=== PATIENT | female | born 1970 | race Caucasian/White ===

== ENCOUNTER → 2019-03-11 | Outpatient (CLI) | payer BC, OTHER ==
--- NOTE | 2019-03-11 15:15 | 2DMMODE ---
[facility] [place] [address] 2 D/M-MODE ECHOCARDIOGRAM Name: COLETTE BHATT Room #: REG CHENG Desir#: [id number] ������������� Admission: 03/11/19 ������������� Attend Phys: Dotty Goss Discharge: ��� ������������� ��� Date of : 74 Date of Service: 03/11/19 1515 �� Report #: [id number] �������� ��������������������������������������������[id number] THIS REPORT FOR: //name// APPROVED REPORT Study performed: 03/11/2019 13:02:57 EXAM: Comprehensive 2D, Doppler, and color-flow Echocardiogram Patient Location: Echo lab Status: routine BSA: 2.13 HR: 68 bpm BP: 123/82 mmHg Rhythm: NSR Other Information Study Quality: Good Indications Dizziness and Vertigo Dyspnea Palpitations Tachycardia 2D Dimensions RVDd: 28.14 mm IVSd: 10.20 (7-11mm) LVOT Diam: 24.48 (18-24mm) LVDd: 50.55 mm PWd: 9.03 (7-11mm) Ascending Ao: 37.76 (22-36mm) LVDs: 31.13 (25-40mm) Aortic Root: 36.55 mm IVC: 23.00 mm Volumes Left Atrial Volume (Systole) Single Plane 4CH: 32.26 mL Single Plane 2CH: 35.82 mL LA ESV Index: 17.53 mL/m2 Aortic Valve AoV Peak Osiel.: 1.38 m/s AO Peak Gr.: 7.58 mmHg LVOT Max P.73 mmHg LVOT Max V: 1.09 m/s CAMELIA Vmax: 3.72 cm2 Mitral Valve [facility] [address] [address] 2 D/M-MODE ECHOCARDIOGRAM Name: COLETTE BHATT Room #: REG [facility]#: [id number] ������������� Admission: 03/11/19 ������������� Attend Phys: Dotty Goss Discharge: ��� ������������� ��� Date of : 74 Date of Service: 03/11/19 1515 �� Report #: [id number] �������� ��������������������������������������������[id number] E/A Ratio: 1.3 MV Decel. Time: 217.09 ms MV E Max Osiel.: 0.95 m/s MV A Osiel.: 0.72 m/s MV PHT: 62.96 ms IVRT: 147.64 ms Pulmonary Valve PV Peak Osiel.: 0.97 m/s PV Peak Gr.: 3.74 mmHg Pulmonary Vein P Vein S: 0.60 m/s P Vein A: 0.34 m/s P Vein D: 0.46 m/s P Vein A Dur.: 170.7 msec P Vein S/D Ratio: 1.30 Tricuspid Valve TR Peak Osiel.: 1.85 m/s RAP Estimate: 10.00 mmHg TR Peak Gr.: 13.65 mmHg PA Pressure: 24.00 mmHg Left Ventricle The left ventricle is normal size. There is normal left ventricular wall thickness. The left ventricular systolic function is normal. The left ventricular ejection fraction is within the normal range. LVEF is 55-60%. Right Ventricle The right ventricle is normal size. The right ventricular systolic function is normal. Atria The left atrium size is normal. The right atrium size is normal. Aortic Valve The aortic valve is normal in structure, trileaflet. No aortic regurgitation is present. There is no aortic valvular stenosis. Mitral Valve The mitral valve is normal in structure. There is no mitral valve regurgitation noted. No evidence of mitral valve stenosis. Tricuspid Valve The tricuspid valve is normal in structure. Mild tricuspid regurgitation. Estimated PAP of 24 mmHg. [facility] [address] [place] [address] 2 D/M-MODE ECHOCARDIOGRAM Name: COLETTE BHATT Room #: SETH Desir#: [id number] ������������� Admission: 03/11/19 ������������� Attend Phys: Dotty Goss Discharge: ��� ������������� ��� Date of : 74 Date of Service: 03/11/19 1515 �� Report #: [id number] �������� ��������������������������������������������[id number] Pulmonic Valve Pulmonic valve is not well visualized. There is no pulmonic valvular regurgitation seen. Great Vessels Aortic root is within upper limits of normal measuring 3.7 cm. The ascending aorta is mildly dilated measuring 3.8 cm. IVC is dilated and collapses >50% with inspiration. Pericardium There is no pericardial effusion. <Conclusion> The left ventricle is normal size. LVEF is 55-60%. The aortic valve is normal in structure, trileaflet. The mitral valve is normal in structure. The tricuspid valve is normal in structure. Mild tricuspid regurgitation. Estimated PAP of 24 mmHg. Pulmonic valve is not well visualized. There is no pericardial effusion. ��������������������������������������������� <ELECTRONICALLY SIGNED> ���������������������������������������� By: Larry Batres MD ��������������������������������������������� 03/11/19 1515 1515 1515 Larry Batres MD /INF
== END ==
LOC: CV 07:10 → NUC 10:14 → CV 11:29 → NUC 12:24
DX: I07.1 Rheumatic tricuspid insufficiency (principal); I47.1 Supraventricular tachycardia; Z88.8 Allergy status to other drugs, medicaments and biological substances; Z88.0 Allergy status to penicillin

== ENCOUNTER 2019-03-25 10:11 | Observation (INO) | payer BC, OTHER ==
[~2019-03-25] VITALS: Ht 170.2 cm; Wt 104.3 kg
[2019-03-25] VITALS (7 sets, daily range): BP systolic 105–132; BP diastolic 72–84
[2019-03-25 10:42] LABS: ABSOLUTE NEUTROPHILS 2.9 thou/uL (1.4-8.2); BASOPHILS 0.1 % (0.0-2.0); HEMATOCRIT 40.8 % (37.0-47.0); LYMPHOCYTES 40.4 % (24.0-44.0); MCH 31.1 pg (26.0-34.0); MCHC 34.2 g/dL (28.0-37.0); MCV 90.7 fL (80.0-100.0); MONOCYTES 6.7 % (1.0-8.0); PLATELET COUNT 328 thou/uL (150-400); POLYS 52.8 % (36.0-66.0); RDW 12.3 % (10.5-14.5); WBC 5.5 thou/uL (4.0-11.0)
[2019-03-25 10:50] LABS: CALCIUM 9.2 mg/dL (8.5-10.1); CREATININE 0.9 mg/dL (0.6-1.0); POTASSIUM 3.9 mmol/L (3.5-5.1)
[2019-03-25 10:54] LABS: APTT 25.8 Seconds (24.5-32.8); PROTIME 9.6 Seconds (9.3-11.4)
[2019-03-25 10:55] LABS: ALBUMIN 4.2 g/dL (3.4-5.0); TOTAL BILIRUBIN 0.5 mg/dL (<0.1-1.0); TOTAL PROTEIN 7.6 g/dL (6.4-8.2)
[2019-03-25] MEDS ORDERED: PYRIDOXINE HCL50 MG PO ×2 (11:48)
[2019-03-25] MEDS ORDERED: ASPIRIN EC81 M1 PO (16:09)
--- NOTE | 2019-03-25 16:48 | NUR ---
PT CARE ASSUMED APPROX 1545. ADMITTED FROM PACU S/P ABLATION. VSS. ALERT AND ORIENTED X4. DENIES SOA. REPORTS PAIN IN HEAD, BACK AND LEGS. MESSAGE SENT TO PHARMACY TO SEND TORDOL. FAMILY AT BEDSIDE. BILATERAL GROIN SITES C/D/I. POST EP PROCEDURE INTERVENTION INITIATED. PT DENIES QUESTIONS OR CONCERNS REGARDING POC. PT HAD FOOD AND DRINK UPON ARRIVAL. ORIENTED TO UNIT AND HOSPITAL POLICIES, MENU AND VISITATION HRS. DENIES QUESTIONS. WILL MEDICATE WHEN TORDOL ARRIVES. NO DISTRESS NOTED.
[2019-03-26 04:45] VITALS: BP 117/80
--- NOTE | 2019-03-26 06:01 | NUR ---
ASSUMED PT CARE AT 1900, VSS. PT A&0X4, COMPLAINED OF PAIN IN BOTH LEFT AND RIGHT GROIN SITES. GROIN SITES HAS SOME DRIED BLOOD DRAINAGE UPON ASSUMPTION OF PATIENT CARE. APART FROM THAT, SITE IS SOFT TO TOUCH, NO HEMATOMA NOTED. KETORALAC IV AND TYLENOL GIVEN TO MANAGE PT'S PAIN, WELL LORAZEPAM FOR ANXIETY. PT HAS BEEN STABLE ALL NIGHT, SLEPT THROUGH THE NIGHT WELL. WILL CONTINUE TO MONITOR PER POC.
[2019-03-26 08:20] VITALS: BP 111/67
[2019-03-26 08:59] VITALS: BP 111/67
--- NOTE | 2019-03-26 13:31 | NUR ---
ASSUMED CARE OF THE PATIENT AT 0700. A&O X 4. BILATERAL GROIN SITES WERE EXAMINED WITH NURSE RESEARCHER AT SHIFT CHANGE. NO EDEMA OR HEMATOMA AT EITHER SITE. RIGHT SIDE HAD MINIMAL DRIED BLOOD ON THE BANDAGE WHICH WAS ON THERE THE ENTIRETY OF THE SHIFT, ACCORDING TO NURSE RESEARCHER. COMPLAINS OF TENDERNESS AT LEFT GROIN SITE, WHICH IS BEING TREATED WITH IV TORADOL AND ACETAMINOPHEN. DR. AVILA PREPARED DISCHARGE ORDERS. PATIENT REFUSED AM MED ALONG WITH IBPROFEN ADDED BY DR. AVILA. IV AD TELE REMOVED. PATIENT STATES THAT SHE FEELS BETTER THAN SHE DID ON ARRIVAL. SHE WAS DRIVE HOME BY HER MOTHER.
--- NOTE | 2019-03-29 16:45 | P ---
[facility] [place] [address] PROCEDURE REPORT Name: COLETTE BHATT Room #: 214-P [facility] Slime MRamone#: [id number] Admission: 03/25/19 ������������������ Attend Phys: West Villa MD Discharge: 03/26/19 ������������������ Date of : 74 Report #: [id number] THIS REPORT FOR: //name// CC: Anabel Villa PREOPERATIVE DIAGNOSIS: Supraventricular tachycardia. POSTOPERATIVE DIAGNOSIS: Right-sided focal atrial tachycardia arising from the clement terminalis. HISTORY: The patient is a 48-year-old with history of frequent palpitations. Some short runs of atrial tachycardia on a manager cardiac, who is here for EP study and possible ablation. PROCEDURES PERFORMED: 1. SVT ablation, CPT code 58289. 2. EP with left atrial pacing and recording, CPT code 85514. 3. Program stimulation and pacing after IV drug infusion, CPT code 14644. 4. 3D mapping EP, CPT code 89319. ANESTHESIA: The patient underwent MAC anesthesia with no anesthesia related complications. DESCRIPTION OF PROCEDURE: The patient underwent informed consent. We discussed the details of the procedure including the risks, which include but not limited to bleeding, vascular damage, cardiac perforation, stroke, KS as well as damage to the pauma conduction system requiring permanent pacemaker. She understood these risks and is willing to proceed. The patient was brought to the EP laboratory in a fasting and sedated state, prepped and draped in a sterile fashion and I placed 3 short sheaths in the right femoral vein and one short sheath in left femoral vein using the modified Seldinger technique. Next, under fluoroscopy, I placed 3 quadripolar catheters into the HRA, His, and RV positions and a decapolar catheter easily in the coronary sinus and I performed both left atrial pacing and recording from this catheter. The patient at baseline was in sinus rhythm with sinus cycle length of 600 milliseconds, WY interval 135 milliseconds, QRS duration 94 milliseconds, QT interval 360 milliseconds, AH interval 82 milliseconds, HV interval 47 milliseconds. Next, ventricular pacing was performed and VA block was noted at 370 milliseconds and VA ERP was noted at 240 milliseconds at 450-millisecond basic drive cycle length. Conduction was both midline and decremental. Next, atrial pacing was performed and AV block was noted at 280 milliseconds. Atrial ERP was noted at 200 milliseconds at 500-millisecond basic drive cycle length. With single atrial extrastimuli, there was some evidence of intraatrial reentry [facility] [address] [address] PROCEDURE REPORT Name: COLETTE BHATT Room #: 214-P [facility] Slime Desir#: [id number] Admission: 03/25/19 ������������������ Attend Phys: West Villa MD Discharge: 03/26/19 ������������������ Date of : 74 Report #: [id number] with some high-to-low activation patterns. This appeared to be nonspecific in nature. Next, isoproterenol was initiated at 2 mcg per minute and aggressive EP study was continued. AV block was now noted at 230 milliseconds. Atrial ERP was noted at 190 milliseconds at a 400-millisecond basic drive cycle length. Again, there was occasional intraatrial reentry, which again I did not think was anything of interest. Next, ventricular pacing and again was performed and VA block was noted at 300 milliseconds and we performed testing on isoproterenol for 30 minutes. Next, isoproterenol was turned off and after performing testing off of isoproterenol for about 10 minutes, the patient went into SVT. The tachycardia cycle length was 300 milliseconds. There was a high-to-low atrial activation suggestive of an atrial tachycardia. Rapid ventricular pacing was performed and I was able to dissociate the V from the A suggestive of an atrial tachycardia. 3D MAPPING AND ABLATION: I removed my HRA catheter and placed a PentaRay into the right atrium and initially created a voltage map and 3D mapping. Next, the patient was induced back into the atrial tachycardia with single atrial extrastimuli. Of note, I did leave the patient on 0.5 mcg of isoproterenol after I had induced the tachycardia. The activation map was suggestive of a focal atrial tachycardia arising from the high right atrium along the clement terminalis. It was basically straight lateral. When I would place the PentaRay in this site, there was frequent termination of the tachycardia. When I tried mapping this, the patient did degenerate once into atrial fibrillation and required a 200 joule cardioversion. A second time of mapping in the same site also resulted in atrial fibrillation requiring a second 200 joule cardioversion. At this point, we had a very nice voltage and activation map and the atrial tachycardia appeared to be very focal and at the site where it was arising, there were very fractionated atrial signals in sinus rhythm of around 40-50 milliseconds. We performed a finer mapping with a 4 mm SmartTouch ThermoCool ablation catheter at this site. When I had the ablation catheter at these highly fractionated atrial signals, I could no longer induce the tachycardia. She would have maybe 3-5 beats and then terminate. Therefore, I decided to go ahead and ablate at this site. I did perform high output pacing at 10 volts all along this region to ensure there is no evidence of phrenic nerve capture. I then performed ablation at 35 hanson. The first ablation lesion, which was performed at the earliest atrial activation site resulted in a burst of atrial tachycardia lasting about 10 seconds and then termination. I performed approximately 7 ablation lesions, all of 30-60 milliseconds all along this region guided by the fractionated atrial signals. There appeared to be good decreased in the atrial amplitude and homogenization of the atrial activity in this site. POST-ABLATION TESTING: Post-ablation, the patient was placed back on isoproterenol 1 mcg per minute and we performed aggressive EP study again. Atrial ERP was noted at 180 milliseconds at a 400-millisecond basic drive cycle length and AV block was noted at 250 milliseconds. Again, I tried to induce [facility] [address] [place] [address] PROCEDURE REPORT Name: COLETTE BHATT Room #: 214-P [facility]..#: [id number] Admission: 03/25/19 ������������������ Attend Phys: West Villa MD Discharge: 03/26/19 ������������������ Date of : 74 Report #: [id number] just performing single atrial extrastimuli at the similar cycle lengths and we could not induce anything at this point. Isoproterenol was turned off and again we continued testing for a total of 30 minutes post-ablation and this focal atrial tachycardia was now rendered noninducible. As such, the procedure was concluded. The patient was in sinus rhythm with sinus cycle length of 555 milliseconds, WY interval 165 milliseconds, QRS duration 90 milliseconds, QT interval 320 milliseconds, AH interval 80 milliseconds, HV interval 40 milliseconds. As such, all catheters and sheaths were pulled. Hemostasis was obtained. The patient awoke neurologically and hemodynamically intact. No complications and no significant bleeding. CONCLUSIONS: 1. Successful atrial tachycardia ablation that was arising from the lateral high right atrium along the clement terminalis. 2. Normal SA gus function. 3. Normal AV node function. 4. Normal His-Purkinje function. 5. No other inducible arrhythmias were induced other than atrial fibrillation. This atrial fibrillation is of unknown clinical significance as this has not been previously clinically documented. ��������������������������������������������� <ELECTRONICALLY SIGNED> ���������������������������������������� By: West Villa MD ��������������������������������������������� 03/29/19 1645 1448 [id number] West Villa MD /nt
== END 2019-03-26 10:00 | disposition home or self-care (01) ==
LOC: CATH 10:11 → 2N 16:31
PROVIDERS: ADMIT Internal Medicine Cardiovascular Disease
DX: I47.1 Supraventricular tachycardia (principal); R00.2 Palpitations; Z98.84 Bariatric surgery status; Z88.0 Allergy status to penicillin; Z88.5 Allergy status to narcotic agent; Z88.8 Allergy status to other drugs, medicaments and biological substances
CPT/HCPCS: 62110; 62900; 70005

== ENCOUNTER → 2019-06-27 | Outpatient (CLI) | payer BC, OTHER ==
[~2019-06-27] MED LIST: ASPIRIN EC81 M1 PO; PYRIDOXINE HCL50 MG PO
--- NOTE | 2019-07-01 15:05 | 24HR ---
[facility] [employer] [place] [address] 24 HR ELECTROCARDIOGRAM REPORT Name: COLETTE BHATT [id number] Admission: 06/27/19 Attend Phys: West Villa Discharge: Date of : 74 Date of Service: 06/27/191656 Report #: [id number] THIS REPORT FOR: //name// [facility] Test Date: 2019-06-27 Test Time: 16:57:00 Pat Name: COLETTE BHATT Department: Room: Gender: [employer]ose [employer] Finder: : 1970 Requested By: West Villa Order Number: [id number] Reading MD: Case Butler Interpretive Statements 1. The study duration was 24 hours and the technical quality is good. Predominant rhythm sinus rhythm at an average heart rate of 91 bpm, range 59-129 bpm. Longest RR interval 1.4 seconds. 2. Occasional isolated atrial premature complexes. No episodes of heart block. No episodes of atrial fibrillation or atrial flutter. No episodes of PSVT 3. Rare isolated premature ventricular complexes. No episodes of ventricular tachycardia. 4. No symptoms reported. Electronically Signed On 07-01-2019 15:05:18 CDT by Case Butler [email or web address] <ELECTRONICALLY SIGNED> By: Case Butler MD, [facility] 07/01/19 1505 1657 1657 Case Butler MD, [facility] /EPI
== END ==
LOC: CV 16:08
DX: R00.0 Tachycardia, unspecified (principal)